=== PATIENT | female | born 1985 | race African-American/Black ===

== ENCOUNTER 2016-08-30 04:22 | Emergency (ER) | payer OTHER ==
[~2016-08-30] VITALS: Ht 175.3 cm; Wt 60.0 kg
[2016-08-30 04:22] VITALS: BP 164/82; PULSE 75; RESP 16; TEMP 97.9; O2SAT 100
[2016-08-30] MEDS ORDERED: FERR325C PO (04:46)
--- NOTE | 2016-08-30 05:11 | PD ---
HPI Chief Complaint: Abdominal Pain Time Seen by Provider: 05:01 Travel History International Travel<30 days: No Contact w/Intl Traveler<30days: No Traveled to known affect area: No History of Present Illness HPI The patient is a 30 year old female who presents to the [facility] emergency department with a history of right lower quadrant abdominal pain that she reports began and has been constant since 2 AM. The patient reports that the pain is severe. She reports that it is sharp in character. She reports that she has intermittently had a pain similar to this over the last 1-1/2-2 months, however it usually comes and goes on its own. She reports that she took 2 Aleve without relief. The patient reports that she has also had intermittent vaginal bleeding/spotting for the last 2 months. She reports that she has a history of irregular menstrual cycles since she was 27 years of age. She reports that she first had menarche at 14 years of age. She reports that she has seen her primary care physician regarding this for months ago and had a Pap smear and pelvic examination. She reports that an ultrasound of the pelvis was ordered, however she never followed up to complete it. The patient reports that she did have some pain with urinating prior to arrival, however otherwise she denies any urinary frequency or urgency. She denies having any nausea, vomiting, or diarrhea. She reports that her last bowel movement was earlier today. She denies ever being previously. The patient denies any recent fevers, cough, congestion, neck pain, chest pain, shortness of breath, or neurologic symptoms. PFSH Past Medical History Narrative Medical The patient's past medical history is significant for irregular menstrual cycles , anemia Anemia: Yes Tetanus Vaccination: Unknown Influenza Vaccination: Yes ?: Not LMP: NOW Past Surgical History Narrative Surgical The patient's past surgical history is reportedly none. Surgical History: No Previous Surgery Social History Alcohol Use: Yes Tobacco Use: No Substance Use: No Allergies-Medications (Allergen,Severity, Reaction): Coded Allergies: Citric Acid (Verified Allergy, Severe, 08/30/16) Reported Meds & Prescriptions Reported Meds & Active Scripts Active Reported Iron (Ferrous Sulfate) 325 Mg Cap 325 Mg PO DAILY Review of Systems Except as stated in HPI: all other systems reviewed are Neg General / Constitutional: No: Fever Eyes: No: Visual changes HENT: No: Headaches Cardiovascular: No: Chest Pain or Discomfort Respiratory: No: Shortness of Breath Gastrointestinal: Positive: Abdominal Pain, No: Nausea, Vomiting, Diarrhea, Changes in Bowel Habits, Indigestion, Loss of Appetite Genitourinary: Positive: Dysuria, Pelvic Pain, Vaginal Bleeding, No: Urgency, Frequency, Flank Pain, Discharge Musculoskeletal: No: Pain Skin: No Rash Neurologic: No: Weakness Psychiatric: No: Depression Endocrine: No: Polydipsia Hematologic/Lymphatic: No: Easy Bruising Physical Exam Narrative General: The patient is a well-developed well-nourished female who arrives uncomfortable appearing, tearful on examination related to the pain. Head and Neck exam: Head is normocephalic atraumatic. Eyes: EOMI, pupils are equal round and reactive to light. Nose: Midline septum with pink mucous membranes Mouth: Dentition unremarkable. Moist mucus membranes. Posterior oropharynx is not erythematous. No tonsillar hypertrophy. Uvula midline. Airway patent. Neck: No palpable lymphadenopathy. No nuchal rigidity. No thyromegaly. Cardiovascular: Regular rate and rhythm without murmurs, gallops, or rubs. Lungs: Clear to auscultation bilaterally. No wheezes, rhonchi, or rales. Abdomen: Soft, with tenderness on palpation in the right lower quadrant of the abdomen. The patient has tenderness on palpation over McBurney's point. No tenderness on palpation of the other quadrants of the abdomen. No guarding, rebound, or rigidity. Normal bowel sounds are audible. Negative [place] sign. Extremities: No clubbing, cyanosis, or edema. 2+ pulses in all 4 extremities. No calf tenderness on palpation. Back: No spinous process tenderness to palpation. No costovertebral angle tenderness to palpation. Neurologic Exam: Grossly nonfocal. Skin Exam: No rash noted. Intact skin that is warm and dry. Gynecologic exam: The patient was placed in the dorsal lithotomy position. Her external genitalia were examined. She had no evidence of rash or lesions. The speculum was placed into her vagina and the cervix was identified. She had a mild amount of vaginal blood noted pooling in the posterior vaginal vault. No cervical friability. On Bimanual exam: she has no cervical motion tenderness. She has right-sided adnexal tenderness on palpation. No uterine tenderness or enlargement noted on palpation. Data Data Last Documented VS Vital Signs Date Time Temp Pulse Resp B/P Pulse Ox O2 Delivery O2 Flow Rate FiO2 08/30/16 04:22 97.9 75 16 164/82 100 Room Air Orders Beta Hcg (Quant/Titer) (08/30/16 05:01) Complete Blood Count With Diff (08/30/16 05:01) Comprehensive Metabolic Panel (08/30/16 05:01) Gc And Chlamydia Pcr (08/30/16 05:01) Wet Prep Profile (08/30/16 05:01) Urinalysis - C+S If Indicated (08/30/16 05:01) Iv Access Insert/Monitor (08/30/16 05:01) Ecg Monitoring (08/30/16 05:01) Ed Urine Pregnancytest Poc (08/30/16 05:01) Sodium Chlor 0.9% 1000 Ml Inj (Ns 1000 M (08/30/16 05:15) Ketorolac Inj (Toradol Inj) (08/30/16 05:15) Us Pelvis (Ques Pr/Ect)W Trans (08/30/16 05:17) Complete Rh (08/30/16 05:17) Thyroid Stimulating Hormone (08/30/16 05:01) C-Reactive Protein (Crp) (08/30/16 05:10) Ed Poc Ultrasound (08/30/16 ) Potassium Chloride (Kcl) (08/30/16 06:15) Labs Laboratory Tests Test 08/30/16 08/30/16 05:10 05:26 White Blood Count 5.9 TH/MM3 Red Blood Count 5.12 MIL/MM3 Hemoglobin 13.3 GM/DL Hematocrit 39.8 % Mean Corpuscular Volume 77.7 FL Mean Corpuscular Hemoglobin 26.0 PG Mean Corpuscular Hemoglobin 33.5 % Concent Red Cell Distribution Width 14.6 % Platelet Count 279 TH/MM3 Mean Platelet Volume 8.0 FL Neutrophils (%) (Auto) 69.6 % Lymphocytes (%) (Auto) 19.2 % Monocytes (%) (Auto) 10.2 % Eosinophils (%) (Auto) 0.5 % Basophils (%) (Auto) 0.5 % Neutrophils # (Auto) 4.1 TH/MM3 Lymphocytes # (Auto) 1.1 TH/MM3 Monocytes # (Auto) 0.6 TH/MM3 Eosinophils # (Auto) 0.0 TH/MM3 Basophils # (Auto) 0.0 TH/MM3 CBC Comment DIFF FINAL Differential Comment Urine Color YELLOW Urine Turbidity CLEAR Urine pH 6.0 Urine Specific [place] 1.024 Urine Protein TRACE mg/dL Urine Glucose (UA) NEG mg/dL Urine Ketones NEG mg/dL Urine Occult Blood SMALL Urine Nitrite NEG Urine Bilirubin NEG Urine Urobilinogen 2.0 MG/DL Urine Leukocyte Esterase NEG Urine RBC LESS THAN 1 /hpf Urine WBC 1 /hpf Urine Squamous Epithelial 1 /hpf Cells Urine Bacteria RARE /hpf Urine Mucus FEW /lpf Microscopic Urinalysis Comment CULT NOT INDICATED Sodium Level 138 MEQ/L Potassium Level 3.1 MEQ/L Chloride Level 104 MEQ/L Carbon Dioxide Level 25.4 MEQ/L Anion Gap 9 MEQ/L Blood Urea Nitrogen 15 MG/DL Creatinine 0.59 MG/DL Estimat Glomerular Filtration 143 ML/MIN Rate Random Glucose 78 MG/DL Calcium Level 9.1 MG/DL Total Bilirubin 0.4 MG/DL Aspartate Amino Transf 8 U/L (AST/SGOT) Alanine Aminotransferase 10 U/L (ALT/SGPT) Alkaline Phosphatase 75 U/L C-Reactive Protein LESS THAN 0.29 MG/DL Total Protein 8.8 GM/DL Albumin 4.2 GM/DL Thyroid Stimulating Hormone 1.370 uIU/ML 3rd Gen Human Chorionic Gonadotropin, 4079 MIU/ML Quant Clue Cells (Wet Prep) PRESENT Vaginal Trichomonas (Wet Prep) NONE SEEN Vaginal Yeast (Wet Prep) NONE SEEN Blood Type AB POSITIVE Rho(D) Type POSITIVE MDM Medical Decision Making Medical Screen Exam Complete: Yes Emergency Medical Condition: Yes Medical Record Reviewed: Yes Differential Diagnosis Ovarian torsion, versus ectopic , versus threatened miscarriage, versus ovarian cyst, versus appendicitis Narrative Course During the course of the patients emergency department visit, the patients history, examination, and differential diagnosis were reviewed with the patient. The patient had IV access obtained and blood work sent for analysis. The patient was placed on a cardiac tech with oximetry and blood pressure monitoring. A bedside test came back positive. An Rh has been ordered, a quantitative beta hCG has been ordered. An ultrasound to rule out ectopic has been ordered. A bedside ultrasound will be done by me to further evaluate emergently. The patient had a [id number] ultrasound done by me. No intrauterine was able to be identified. There appeared to be free fluid in the pelvis. The patient was initially provided normal saline a 1 L IV fluid bolus. The patients laboratory studies were reviewed and remarkable for a white count of 5.9, hemoglobin 13.3, platelets 279 with 10.2 monocytes, CMP is remarkable for potassium of 3.1 which was supplemented orally with 40 mEq of potassium chloride, AST 8, C-reactive protein is less than 0.29, total protein 8.8, TSH 1.37, beta hCG is 4079, urinalysis shows small occult blood, rare bacteria, a wet prep is positive for clue cells. The patient's blood type is AB+. Radiology studies were reviewed and remarkable for an ultrasound that reveals a of unknown location. There is no intrauterine identified and the right ovary has an abnormal appearance of being enlarged and very heterogeneous and containing at least 1 thick walled cystic structure which could represent an ectopic . Left ovary has a normal appearance. There is a trace of free fluid in the pelvis. I did speak to Dr. Dave the OB hospitalist regarding this patient's case. He will come in to evaluate the patient. Diagnosis Primary Impression: Ectopic Qualified Code: O00.20 - Ovarian without intrauterine Sarah Hernandez MD Aug 30, 2016 05:11
[2016-08-30] MEDS ORDERED: SODIUM CHLOR 0.9% 1000 ML INJ 1,000 ML IV ONE (05:15)
[2016-08-30] MEDS ORDERED: KETOROLAC TROMETHAMINE 30 MG/ML (IVP) VIAL IV PUSH ONE (05:15)
[2016-08-30 05:32] LABS: AUTOMATED NEUTROPHIL # 4.1 TH/MM3 (1.8-7.7); BASOPHIL % 0.5 % (0.0-2.0); EOSINOPHIL % 0.5 % (0.0-4.0); HEMATOCRIT 39.8 % (35.0-46.0); HEMO FLAGS DIFF FINAL; LYMPH % 19.2 % (9.0-44.0); LYMPHOCYTE # 1.1 TH/MM3 (1.0-4.8); MEAN CELL VOLUME 77.7 FL (80.0-100.0); MEAN CORPUSCULAR HGB CONC 33.5 % (32.0-36.0); MONO % 10.2 % (0.0-8.0); NEUT % 69.6 % (16.0-70.0); PLATELET COUNT 279 TH/MM3 (150-450); RED BLOOD COUNT 5.12 MIL/MM3 (4.00-5.30); RED CELL DISTRIBUTION WIDTH 14.6 % (11.6-17.2); WHITE BLOOD COUNT 5.9 TH/MM3 (4.0-11.0)
[2016-08-30 05:40] LABS: BACTERIA, URINE RARE /hpf; BLOOD, URINE SMALL (NEG); GLUCOSE,URINE NEG (NEG); KETONE, URINE NEG (NEG); MUCUS URINE FEW /lpf (OCC); NITRITE,URINE NEG (NEG); SQUAMOUS EPITHELIAL CELL URINE 1 /hpf (0-5); URINE COLOR YELLOW (YELLW/STRAW)
[2016-08-30 05:45] LABS: COMMENT (UR) CULT NOT INDICATED; CULTURE IF INDICATED CULT NOT INDICATED
[2016-08-30 05:49] LABS: ALT (GPT) 10 U/L (10-53); ANION GAP 9 MEQ/L (5-15); AST (GOT) 8 U/L (15-37); BICARBONATE 25.4 MEQ/L (21.0-32.0); BLOOD UREA NITROGEN 15 MG/DL (7-18); CHLORIDE 104 MEQ/L (98-107); GLOMERULAR FILTRATION RATE 143 ML/MIN (>89); POTASSIUM 3.1 MEQ/L (3.5-5.1); SODIUM (NA) 138 MEQ/L (136-145)
[2016-08-30 06:06] LABS: ALKALINE PHOSPHATASE 75 U/L (45-117); BETA HCG QUANT 4079 MIU/ML (0-5); TOTAL BILIRUBIN ADULT 0.4 MG/DL (0.2-1.0)
[2016-08-30] MEDS ORDERED: POTASSIUM CHLORIDE 20 MEQ CONTROLLED RELEASE TAB PO ONE (06:15)
--- NOTE | 2016-08-30 06:38 | RADRPT ---
EXAM DATE/TIME: 08/30/2016 05:35 [place] COMPARISON: No previous studies available for comparison. INDICATIONS : Pelvic pain. LAB(S): Beta-hC MEDICAL HISTORY : . Anemia. SURGICAL HISTORY : None. ENCOUNTER: Initial ACUITY: 1 month PAIN SCORE: 8/10 LOCATION: Bilateral pelvis MEASUREMENTS: UTERUS: 8.0 x 6.1 x 4.8 cm ENDOMETRIAL STRIPE: 14 mm RIGHT OVARY: 7.4 x 5.6 x 3.4 cm LEFT OVARY: 2.4 x 2.9 x 2.1 cm FREE FLUID: Yes FINDINGS: UTERUS: The myometrium has homogeneous echotexture without mass. No gestational sac is identified. RIGHT OVARY: Enlarged heterogeneous right ovary. There is a thickwalled structure abutting the superior aspect of the right ovary measuring approximately 10 mm. It contains increased blood flow peripherally but no y olk sac is identified within this structure. There additionally is a simple cyst in the right ovary m easuring 2.2 cm. LEFT OVARY: Ovary contains no mass or significant cystic lesion. MISCELLANEOUS: There is trace free fluid in the pelvis. CONCLUSION: 1. of unknown location. There is no intrauterine identified in the right ovary chapin s an abnormal appearance of being enlarged and very heterogeneous and containing at least one thickwa lled cystic structure which could represent an ectopic . 2. Left ovary has a normal appearance. Ryder Suarez MD on August 30, 2016 at 6:31 Board Certified Radiologist. This report was verified electronically.
[2016-08-30 07:18] LABS: CHLAMYDIA PCR DETECTED (NOT DETECT); NEISSERIA PCR NOT DETECTED (NOT DETECT)
--- NOTE | 2016-08-30 08:02 | PD ---
Physical Exam Date Seen by Provider: Aug 30, 2016 Time Seen by Provider: 08:02 Narrative 30-year-old female came to the emergency room with history of abdominal pain. She was diagnosed with ectopic by the previous ER physician. She had contacted the in house OB Dr. Dave and the sign out was to follow-up on Dr. Dave 's recommendation. Please refer to her history and physical for further details. I just spoke with Dr. Dave after he reviewed the ultrasound, labs and saw the patient. His plan is to give the patient a shot of methotrexate today and then have her come back on Monday to get the beta-hCG level rechecked. He ordered the methotrexate as well as spoke with the patient and explained to her about this. At this point I'll go ahead and discharge the patient so that she can go home after the methotrexate. Data Data Last Documented VS Vital Signs Date Time Temp Pulse Resp B/P Pulse Ox O2 Delivery O2 Flow Rate FiO2 08/30/16 17:27 78 16 132/74 99 08/30/16 04:22 97.9 Room Air Orders Beta Hcg (Quant/Titer) (08/30/16 05:01) Complete Blood Count With Diff (08/30/16 05:01) Comprehensive Metabolic Panel (08/30/16 05:01) Gc And Chlamydia Pcr (08/30/16 05:01) Wet Prep Profile (08/30/16 05:01) Urinalysis - C+S If Indicated (08/30/16 05:01) Iv Access Insert/Monitor (08/30/16 05:01) Ecg Monitoring (08/30/16 05:01) Ed Urine Pregnancytest Poc (08/30/16 05:01) Sodium Chlor 0.9% 1000 Ml Inj (Ns 1000 M (08/30/16 05:15) Ketorolac Inj (Toradol Inj) (08/30/16 05:15) Us Pelvis (Ques Pr/Ect)W Trans (08/30/16 05:17) Complete Rh (08/30/16 05:17) Thyroid Stimulating Hormone (08/30/16 05:01) C-Reactive Protein (Crp) (08/30/16 05:10) Ed Poc Ultrasound (08/30/16 ) Potassium Chloride (Kcl) (08/30/16 06:15) Metronidazole (Flagyl) (08/30/16 08:45) Azithromycin Powd Pack (Zithromax Powd P (08/30/16 08:45) Ceftriaxone Inj (Rocephin Inj) (08/30/16 08:45) Lidocaine 1% Inj (50 Ml) (Xylocaine 1% I (08/30/16 09:30) Methotrexate Pf Inj (Methotrexate Pf Inj (08/30/16 09:45) Labs Laboratory Tests Test 08/30/16 08/30/16 05:10 05:26 White Blood Count 5.9 TH/MM3 Red Blood Count 5.12 MIL/MM3 Hemoglobin 13.3 GM/DL Hematocrit 39.8 % Mean Corpuscular Volume 77.7 FL Mean Corpuscular Hemoglobin 26.0 PG Mean Corpuscular Hemoglobin 33.5 % Concent Red Cell Distribution Width 14.6 % Platelet Count 279 TH/MM3 Mean Platelet Volume 8.0 FL Neutrophils (%) (Auto) 69.6 % Lymphocytes (%) (Auto) 19.2 % Monocytes (%) (Auto) 10.2 % Eosinophils (%) (Auto) 0.5 % Basophils (%) (Auto) 0.5 % Neutrophils # (Auto) 4.1 TH/MM3 Lymphocytes # (Auto) 1.1 TH/MM3 Monocytes # (Auto) 0.6 TH/MM3 Eosinophils # (Auto) 0.0 TH/MM3 Basophils # (Auto) 0.0 TH/MM3 CBC Comment DIFF FINAL Differential Comment Urine Color YELLOW Urine Turbidity CLEAR Urine pH 6.0 Urine Specific [place] 1.024 Urine Protein TRACE mg/dL Urine Glucose (UA) NEG mg/dL Urine Ketones NEG mg/dL Urine Occult Blood SMALL Urine Nitrite NEG Urine Bilirubin NEG Urine Urobilinogen 2.0 MG/DL Urine Leukocyte Esterase NEG Urine RBC LESS THAN 1 /hpf Urine WBC 1 /hpf Urine Squamous Epithelial 1 /hpf Cells Urine Bacteria RARE /hpf Urine Mucus FEW /lpf Microscopic Urinalysis Comment CULT NOT INDICATED Sodium Level 138 MEQ/L Potassium Level 3.1 MEQ/L Chloride Level 104 MEQ/L Carbon Dioxide Level 25.4 MEQ/L Anion Gap 9 MEQ/L Blood Urea Nitrogen 15 MG/DL Creatinine 0.59 MG/DL Estimat Glomerular Filtration 143 ML/MIN Rate Random Glucose 78 MG/DL Calcium Level 9.1 MG/DL Total Bilirubin 0.4 MG/DL Aspartate Amino Transf 8 U/L (AST/SGOT) Alanine Aminotransferase 10 U/L (ALT/SGPT) Alkaline Phosphatase 75 U/L C-Reactive Protein LESS THAN 0.29 MG/DL Total Protein 8.8 GM/DL Albumin 4.2 GM/DL Thyroid Stimulating Hormone 1.370 uIU/ML 3rd Gen Human Chorionic Gonadotropin, 4079 MIU/ML Quant Clue Cells (Wet Prep) PRESENT Vaginal Trichomonas (Wet Prep) NONE SEEN Vaginal Yeast (Wet Prep) NONE SEEN Chlamydia trachomatis DNA DETECTED (PCR) Neisseria gonorrhoeae DNA NOT DETECTED (PCR) Blood Type AB POSITIVE Rho(D) Type POSITIVE MDM Supervised Visit with STACY: No Physician Communication Physician Communication Dr. Dave Diagnosis Primary Impression: Ectopic Qualified Code: O00.20 - Ovarian without intrauterine Additional Impression: PID (acute pelvic inflammatory disease) Referrals: Primary Care Physician Additional Instruction: Please return to the emergency room on Monday to get a blood test done to check your beta hCG titer again. Please return to the ER sooner if symptoms worsen. Drink lots of fluid and bedrest. No vaginal intercourse until this is resolved. As per the prescription direction for pain as well as he or PID. Do not drive or operate heavy machinery while on these medications since they will make you groggy. Med/Other Pt SpecificInfo: Prescription(s) given, No Change to Meds Scripts Hydrocodone-Acetaminophen 5-325 mg Tab1 Tab PO Q6H PRN (PAIN) #12 TAB Ref 0 Prov:Steve Bass MD 08/30/16 Metronidazole (Flagyl)250 Mg [id number] Mg PO TID 7 Days Ref 0 Prov:Steve Bass MD 08/30/16 Disposition: 01 DISCHARGE HOME Condition: Stable Steve Bass MD Aug 30, 2016 08:02
[2016-08-30] MEDS ORDERED: METR250 PO (08:39)
[2016-08-30] MEDS ORDERED: HYDR-3516 PO (08:39)
[2016-08-30] MEDS ORDERED: AZITHROMYCIN PWD FOR SUSP 1 GM PACKET PO ONE (08:45)
[2016-08-30] MEDS ORDERED: metroNIDAZOLE 500 MG TAB PO ONE (08:45)
[2016-08-30] MEDS ORDERED: cefTRIAXone 250 MG VIAL IM ONE (08:45)
--- NOTE | 2016-08-30 08:45 | PD.CONS ---
HPI Chief Complaint Abdominal pain, vaginal bleeding Date Seen: Aug 30, 2016 Travel History International Travel<30 Days: No Contact w/Intl Traveler<30Days: No Known Affected Area: No History of Present Illness HPI Patient is 30-year-old black female in early first trimester and did not realize that she was until today she comes in with abdominal pain the right side and vaginal bleeding less than period. Patient's quantitative hCG was 4079, transvaginal ultrasound shows an empty uterus with a cystic structure in the right adnexa consistent with ectopic intact, no significant free fluid in the pelvis or abdomen Para: 0 : 1 History Obstetric History Obstetric History Was first she's been trying for years to get without success Social History Alcohol Use: No Tobacco Use: No Substance Abuse: No Allergies-Medications (Allergen,Severity, Reaction): Coded Allergies: Citric Acid (Verified Allergy, Severe, 08/30/16) Home Meds Active Scripts Hydrocodone-Acetaminophen 5-325 mg Tab1 Tab PO Q6H PRN (PAIN) #12 TAB Ref 0 Prov:Steve Bass MD 08/30/16 Metronidazole (Flagyl)250 Mg Uni244 Mg PO TID 7 Days Ref 0 Prov:Steve Bass MD 08/30/16 Reported Medications Ferrous Sulfate (Iron)325 Mg [id number] Mg PO DAILY #30 TAB Ref 0 08/30/16 Review of Systems General / Constitutional: No: Fever, Weight Gain, Chills, Other Eyes: No: Diploplia, Blurred Vision, Visual changes, Pain, Photophobia HENT: No: Headaches, Vertigo, Lightheadedness Cardiovascular: No: Irregular Rhythm, Chest Pain or Discomfort, Palpitations, Tachycardia, Syncope, Varicosities, Edema, Cyanosis Respiratory: No: Cough, Short of Breath, Other Gastrointestinal: Abdominal Pain, No: Nausea, Vomiting, Diarrhea Genitourinary: Vaginal Bleeding, No: Decreased Urinary Output, Oliguria Musculoskeletal: No: Limited ROM, Weakness, Cramping, Edema, Pain Skin: No Rash, No Itching, No Dryness, No Lumps, No Change in Pigmentation, No Change in Nails, No Alopecia, No Lesions Neurologic: No: Weakness, Dizziness, Syncope, Focal Abnormalities, Coordination Problem, Headache, Slurred Speech, Seizures Psychiatric: No: Depression, Suicidal Ideations, Homicidal Ideation Endocrine: No: Heat Intolerance, Cold Intolerance, Polydipsia, Polyuria, Other Physical Exam Vital Signs Date Time Temp Pulse Resp B/P Pulse Ox O2 Delivery O2 Flow Rate FiO2 08/30/16 04:22 97.9 75 16 164/82 100 Room Air Narrative GENERAL: Well-nourished, well-developed patient. SKIN: Warm and dry. HEAD: Normocephalic and atraumatic. EYES: No scleral icterus. No injection or drainage. ENT: No nasal drainage noted. Mucous membranes pink. Airway patent. NECK: Supple, trachea midline. No JVD. CARDIOVASCULAR: Regular rate and rhythm without murmurs, gallops, or rubs. RESPIRATORY: Breath sounds equal bilaterally. No accessory muscle use. BREASTS: Bilateral exam showed no masses , no retractions, no nipple discharge. ABDOMEN/GI: Abdomen soft, 2+ tender in the right lower quadrant with no rebound nontender and other quadrants, bowel sounds present, no rebound, no guarding GENITOURINARY: External Genitalia: intact and normal in appearance Speculum done showing small amount of dark blood in the vaginal vault Cervix is posterior and positive cervical motion tenderness moderate amount not a lot Uterus is anteflexed nontender with no pain on the left adnexa no mass right adnexa is so 1-2+ tender no rebound EXTREMITIES: No cyanosis or edema. BACK: Nontender without obvious deformity. No CVA tenderness. NEUROLOGICAL: Awake and alert. Motor and sensory grossly within normal limits. Five out of 5 muscle strength in all muscle groups. Normal speech. Data Data Orders Beta Hcg (Quant/Titer) (08/30/16 05:01) Complete Blood Count With Diff (08/30/16 05:01) Comprehensive Metabolic Panel (08/30/16 05:01) Gc And Chlamydia Pcr (08/30/16 05:01) Wet Prep Profile (08/30/16 05:01) Urinalysis - C+S If Indicated (08/30/16 05:01) Iv Access Insert/Monitor (08/30/16 05:01) Ecg Monitoring (08/30/16 05:01) Ed Urine Pregnancytest Poc (08/30/16 05:01) Sodium Chlor 0.9% 1000 Ml Inj (Ns 1000 M (08/30/16 05:15) Ketorolac Inj (Toradol Inj) (08/30/16 05:15) Us Pelvis (Ques Pr/Ect)W Trans (08/30/16 05:17) Complete Rh (08/30/16 05:17) Thyroid Stimulating Hormone (08/30/16 05:01) C-Reactive Protein (Crp) (08/30/16 05:10) Ed Poc Ultrasound (08/30/16 ) Potassium Chloride (Kcl) (08/30/16 06:15) Labs Pelvic ultrasound shows empty uterus with thickened endometrium right-sided the hyperechoic cystic mass approximately 2 cm diameter in the right adnexa no pole or yolk sac seen was consistent with ectopic Laboratory Tests Test 08/30/16 08/30/16 05:10 05:26 White Blood Count 5.9 Red Blood Count 5.12 Hemoglobin 13.3 Hematocrit 39.8 Mean Corpuscular Volume 77.7 Mean Corpuscular Hemoglobin 26.0 Mean Corpuscular Hemoglobin 33.5 Concent Red Cell Distribution Width 14.6 Platelet Count 279 Mean Platelet Volume 8.0 Neutrophils (%) (Auto) 69.6 Lymphocytes (%) (Auto) 19.2 Monocytes (%) (Auto) 10.2 Eosinophils (%) (Auto) 0.5 Basophils (%) (Auto) 0.5 Neutrophils # (Auto) 4.1 Lymphocytes # (Auto) 1.1 Monocytes # (Auto) 0.6 Eosinophils # (Auto) 0.0 Basophils # (Auto) 0.0 CBC Comment DIFF FINAL Differential Comment Urine Color YELLOW Urine Turbidity CLEAR Urine pH 6.0 Urine Specific [place] 1.024 Urine Protein TRACE Urine Glucose (UA) NEG Urine Ketones NEG Urine Occult Blood SMALL Urine Nitrite NEG Urine Bilirubin NEG Urine Urobilinogen 2.0 Urine Leukocyte Esterase NEG Urine RBC LESS THAN 1 Urine WBC 1 Urine Squamous Epithelial 1 Cells Urine Bacteria RARE Urine Mucus FEW Microscopic Urinalysis Comment CULT NOT INDICATED Sodium Level 138 Potassium Level 3.1 Chloride Level 104 Carbon Dioxide Level 25.4 Anion Gap 9 Blood Urea Nitrogen 15 Creatinine 0.59 Estimat Glomerular Filtration 143 Rate Random Glucose 78 Calcium Level 9.1 Total Bilirubin 0.4 Aspartate Amino Transf 8 (AST/SGOT) Alanine Aminotransferase 10 (ALT/SGPT) Alkaline Phosphatase 75 C-Reactive Protein LESS THAN 0.29 Total Protein 8.8 Albumin 4.2 Thyroid Stimulating Hormone 1.370 3rd Gen Human Chorionic Gonadotropin, 4079 Quant Clue Cells (Wet Prep) PRESENT Vaginal Trichomonas (Wet Prep) NONE SEEN Vaginal Yeast (Wet Prep) NONE SEEN Chlamydia trachomatis DNA DETECTED (PCR) Neisseria gonorrhoeae DNA NOT DETECTED (PCR) Blood Type AB POSITIVE Rho(D) Type POSITIVE MDM Interpretation(s) Patient is 30-year-old black female in the emergency room for abdominal pain and no vaginal bleeding. Patient says she's been hurting for a month but just gotten worse today and she did bleeding less than a period for several weeks. Emergency room the patient's quantitative hCG of 4079, pelvic ultrasound shows an empty uterus and a right-sided ectopic no free fluid noted in the pelvis other than a normal small amount in the cul-de-sac. Clinically the patient has some discomfort in the right side no rebound tenderness that it is very consistent with an intact ectopic . Plan Plan to give the patient methotrexate 50 mg/m square IM, today is day 1 of therapy on day 4 which will be this coming Monday she needs a repeat quantitative hCG and on day 7 which is falling Monday she needs a repeat quantitative hCG as well as we got to the emergency room, at that time we should expect at least a 15% drop in her quantitative hCG if that is not the case that a repeat methotrexate needed. If that value is obtained then she can return weekly for repeat quantitative hCGs and this possibly could be arranged to be done at [facility] through her family medicine doctor if not then the possibly through the family medicine clinic here or the emergency room but needs to be done until quantitative hCG is near 0 patient that point needs approximately 3 months out from now will need a hysterosalpingogram to document tubal patency. 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 She was instructed to not take vitamins or anything with folic acid in it also no NSAIDs for pain and all this was explained to the patient. Disposition: 01 DISCHARGE HOME Condition: Stable Scripts Hydrocodone-Acetaminophen 5-325 mg Tab1 Tab PO Q6H PRN (PAIN) #12 TAB Ref 0 Prov:Steve Bass MD 08/30/16 Metronidazole (Flagyl)250 Mg [id number] Mg PO TID 7 Days Ref 0 Prov:Steve Bass MD 08/30/16 Referrals: Primary Care Physician Additional Instructions: Please return to the emergency room on Monday to get a blood test done to check your beta hCG titer again. Please return to the ER sooner if symptoms worsen. Drink lots of fluid and bedrest. No vaginal intercourse until this is resolved. You can take Tylenol/Advil/Motrin/ibuprofen for pain. Osito Dave II, MD Aug 30, 2016 08:45
[2016-08-30] MEDS ORDERED: LIDOCAINE HCL 1% 50 ML VIAL INFIL ONE (09:30)
[2016-08-30] MEDS ORDERED: METHOTREXATE SOD PF 50 MG/2 ML VIAL IM ONE (09:45)
[2016-08-30 17:27] VITALS: BP 132/74
== END 2016-08-30 09:27 | disposition home or self-care (01) ==
LOC: NEPC 04:22
DX: O00.90 Unspecified ectopic pregnancy without intrauterine pregnancy (principal); N73.9 Female pelvic inflammatory disease, unspecified; D64.9 Anemia, unspecified
CPT/HCPCS: 76700; 76817; 80053; 81001; 84443; 84702; 84703; 85025; 86140; 86901; 87210; 87491; 87591; 96372; 99285; J0696; J7030; J9250